=== PATIENT | female | born 1980 | race Caucasian/White ===

== ENCOUNTER → 2016-08-05 | Outpatient (CLI) | payer MEDICAID ==
[~2016-08-05] MED LIST: GADOBUTROL 10 ML VIAL IVP ONE
== END ==
LOC: FIMAGING 15:28
PROVIDERS: ATTEND Psychiatry & Neurology Neurology
DX: G25.5 Other chorea (principal); G25.71 Drug induced akathisia
CPT/HCPCS: A9585

== ENCOUNTER 2018-02-04 17:57 | Emergency (ER) | payer MEDICAID ==
--- NOTE | 2018-02-04 19:12 | EDPHY ---
General - History Smoking Status: Never smoked Time Seen by Provider: 02/04/18 19:10 Narrative: CHIEF COMPLAINT: Right toe injury HISTORY OF PRESENT ILLNESS: Patient presents with complaints of right toe pain after injury. She states that she was walking in her home when she accidentally stubbed the toe earlier today. She complains of pain at the base of the right 5th toe. She has no foot pain, heel pain, ankle pain. It is [id number] with palpation. Improved at rest. Does not radiate. No numbness or tingling. No weakness. No laceration or puncture. ESTABLISHED ORTHOPEDIST: None REVIEW OF SYSTEMS: Ten systems reviewed and are negative unless otherwise noted in the HPI PAST MEDICAL HISTORY: "mental health" PAST SURGICAL HISTORY: No recent surgical history SOCIAL HISTORY: Nonsmoker. FAMILY HISTORY: Noncontributory EXAMINATION: General Appearance: Alert, no distress Cardiovascular: DP pulses 2+ symmetrically. PT pulse is 2+ symmetrically. Good signs of perfusion of the right foot. Neurological: A&O, sensory symmetric, strength symmetric Skin: Warm and dry, no rash. There is mild ecchymosis to the right 5th toe at the proximal phalanx. No puncture. No laceration. Extremities: Tenderness of the right 5th toe at the base of the proximal phalanx. There is no midfoot tenderness. No crepitus or deformity. Compartments are soft the right lower extremity Psychiatric: Mood and affect normal DIFFERENTIAL DIAGNOSES: Including but not limited to sprain, strain, fracture MDM: 7:10 p.m. Acute, closed, nondisplaced fracture of the right 5th the toe proximal phalanx. No injury elsewhere on the right lower extremity. She is fully ambulatory. No laceration or puncture. This will be massimo-taped and postoperative shoe placed. We discussed rest, ice and elevation. We discussed ibuprofen over-the- counter. We discussed follow up with Orthopedics for definitive care. I have answered all of her questions. She is discharged home ambulatory in no acute distress. SUPERVISION: This patient was independently evaluated without direct involvement of or examination by the attending physician. (Pete [place]) Medical Decision Making: I did not see this patient while she was in the emergency department. However her care was discussed with the PA while the patient was in the department. I agree with treatment plan and management (Britni,Kenroy S) - Objective Vital Signs: Initial Vital Signs Temperature (C) 36.6 C 02/04/18 18:01 Heart Rate 79 02/04/18 18:01 Respiratory Rate 18 02/04/18 18:01 Blood Pressure 128/98 H 02/04/18 18:01 O2 Sat (%) 97 02/04/18 18:01 O2 Delivery Mode Room Air Allergies/Adverse Reactions: Sulfa (Sulfonamide Antibiotics) [Sulfa(Sulfonamide Antibiotics)] Allergy ( Intermediate, Verified 02/04/18 18:00) sulfacetamide [Sulfacetamide] Allergy (Verified 02/04/18 18:00) tetracycline [Tetracycline] Allergy (Verified 02/04/18 18:00) Home Medications: Medication Instructions Recorded Prazosin HCl 02/04/18 Wellbutrin 150mg XL 02/04/18 Departure - Departure Disposition: Home, Routine, Self-Care Clinical Impression: Nondisplaced fracture of proximal phalanx of right lesser toe(s), initial encounter for closed fracture Condition: Good Instructions: Toe Fracture (ED) Additional Instructions: 1. Medications as discussed as needed, including ibuprofen 600mg every 8 hours as needed. Do not take in conjunction with anticoagulants or other NSAIDs 2. Follow up with Orthopedics for definitive care 3. Rest, ice and elevation often. 4. ED precautions as discussed for worsening pain, redness, fever, changes in range of motion, changes in sensation Referrals: Je Redman MD [Medical Doctor] - As per Instructions [facility]. [Clinic] - As per Instructions [facility],. [Clinic] - As per Instructions
[2018-02-04 19:31] VITALS: BP 122/72
== END 2018-02-04 19:31 | disposition home or self-care (01) ==
DX: S92.514A Nondisplaced fracture of proximal phalanx of right lesser toe(s), initial encounter for closed fracture (principal); W22.03XA Walked into furniture, initial encounter; Y92.019 Unspecified place in single-family (private) house as the place of occurrence of the external cause; Y99.8 Other external cause status
CPT/HCPCS: L4386